=== PATIENT | male | born 2000 | race Hispanic/Latino ===

== ENCOUNTER 2018-03-18 13:22 | Emergency (ER) | payer BC, OTHER ==
[2018-03-18 13:39] VITALS: BP 122/72; PULSE 91; RESP 18; TEMP 98.3; O2SAT 99
--- NOTE | 2018-03-18 14:34 | ED PDOC ---
Lower Extremity Pain/Injury Time Seen by Provider: 03/18/18 13:42 Chief Complaint (Nursing): Lower Extremity Problem/Injury Chief Complaint (Provider): Lower Extremity Problem/Injury History Per: Patient History/Exam Limitations: no limitations Onset/Duration Of Symptoms: Sudden Onset Current Symptoms Are (Timing): Still Present Additional Complaint(s): 17 year old male arrives to ED with pain to his right 2nd toe with wound present status post running it over with a chair prior to arrival. He denies any numbness, tingling or further complaints. Past Medical History Reviewed: Historical Data, Nursing Documentation, Vital Signs Vital Signs: Last Vital Signs Temp 98.3 F 03/18/18 13:35 Pulse 91 H 03/18/18 13:35 Resp 18 03/18/18 13:35 BP 122/72 03/18/18 13:35 Pulse Ox 99 03/18/18 13:35 - Medical History PMH: No Chronic Diseases - Surgical History Surgical History: No Surg Hx - Family History Family History: States: Unknown Family Hx - Social History Current smoker - smoking cessation education provided: No Ex-Smoker (has not smoked in the last 12 months): No Alcohol: None Drugs: Denies - Allergies Allergies/Adverse Reactions: Allergies Allergy/AdvReac Type Severity Reaction Status Date / Time No Known Allergies Allergy Verified 03/18/18 13:38 Review of Systems ROS Statement: Except As Marked, All Systems Reviewed And Found Negative Musculoskeletal: Positive for: Foot Pain (2nd right toe with wound) Neurological: Negative for: Numbness (or tingling sensation) Physical Exam - Reviewed Nursing Documentation Reviewed: Yes Vital Signs Reviewed: Yes - Physical Exam Appears: Positive for: Well, No Acute Distress Pulses-Dorsalis Pedis (R): 2+ Extremity: Positive for: Normal ROM (actively of right 2nd toe), Capillary Refill (<2 seconds to right foot), Other (circular superficial abrasion to right dorsal surface of right 2nd PIP) - ECG O2 Sat by Pulse Oximetry: 99 (RA) Pulse Ox Interpretation: Normal Medical Decision Making Medical Decision Making: Initial Impression: Toe injury Initial Plan: * Xray foot (right 2nd digit) --------- Time: 1426 --Upon provider re-evaluation, patient is feeling better, medically stable and requires no further treatment in the ED at this time. Patient will be discharged home. Counseling was provided and all questions were answered regarding diagnosis and need for follow up with podiatry surgeon. There is agreement to discharge plan. Return if symptoms persist or worsen. Clinical Impression: Toe injury Scribe Attestation: Documented by Alisia Lopez, acting as a scribe for Tavon Garner PA-C. Provider Scribe Attestation: All medical record entries made by the Scribe were at my direction and personally dictated by me. I have reviewed the chart and agree that the record accurately reflects my personal performance of the history, physical exam, medical decision making, and the department course for this patient. I have also personally directed, reviewed, and agree with the discharge instructions and disposition. Procedures - Laceration/Wound Repair Right Toe Wound's Depth, Shape: superficial Wound Explored: clean Irrigated w/ Saline (ccs): 1 Wound Debrided: minimal Wound Complexity: Simple Progress: Time: 1400 --Obtained verbal consent from patient. --Irrigated wound with saline. --Bacitracin ointment applied. --Patient tolereated procedure well without complication. Disposition - Clinical Impression Clinical Impression: Toe injury - Patient ED Disposition Is Patient to be Admitted: No Counseled Patient/Family Regarding: Studies Performed, Diagnosis, Need For Followup - Disposition Referrals: Adilson Bose DPM [Staff Provider] - Disposition: Routine/Home Disposition Time: 14:26 Condition: IMPROVED Additional Instructions: KELSIE MAHARAJ, thank you for letting us take care of you today. Your provider was Connie Nair MD and you were treated for RIGHT TOE INJURY. The emergency medical care you received today was directed at your acute symptoms. If you were prescribed any medication, please fill it and take as directed. It may take several days for your symptoms to resolve. Return to the Emergency Department if your symptoms worsen, do not improve, or if you have any other problems. Please contact your doctor or call one of the physicians/clinics you have been referred to that are listed on the Patient Visit Information form that is included in your discharge packet. Bring any paperwork you were given at discharge with you along with any medications you are taking to your follow up visit. Our treatment cannot replace ongoing medical care by a primary care provider outside of the emergency department. Thank you for allowing the [facility] team to be part of your care today. If you had an X-Ray or CT scan: A Radiologist will review the ED reading if any change in treatment is needed we will contact you. If you had a blood, urine, or wound culture: It will take several days for the results, if any change in treatment is needed we will contact you. If you had an STI test: It will take 48 hours for the results. Please call after 1 week if you have not heard back. Instructions: Toe Injury (DC) Forms: [employer] (Mongolian)
--- NOTE | 2018-03-18 14:49 | RAD ---
Date of service: 03/18/2018 PROCEDURE: Right foot 2nd digit HISTORY: trauma COMPARISON: None TECHNIQUE: Standard protocol for this study/examination. FINDINGS: No significant/acute osseous, articular or soft tissue abnormalities. IMPRESSION: No acute findings related to/accounting for the clinical presentation.
== END 2018-03-18 14:35 | disposition home or self-care (01) ==
LOC: H.ER 13:22
DX: S99.921A Unspecified injury of right foot, initial encounter (principal); W22.8XXA Striking against or struck by other objects, initial encounter; Y92.89 Other specified places as the place of occurrence of the external cause